=== PATIENT | male | born 1995 | race Caucasian/White ===

== ENCOUNTER 2020-01-15 09:20 | Emergency (ER) | payer OTHER, SELFPAY ==
[2020-01-15 09:25] VITALS: BP 130/91; PULSE 65; RESP 19; TEMP 36.5; O2SAT 100; BMI 17.9
[2020-01-15] MEDS: PROPARACAINE 0.5% OPHTH SOL 1 DROPS EYE-LEFT (09:42)
--- NOTE | 2020-01-15 10:34 | ED_ITS ---
HPI - Eye Problem General Chief complaint: Eye Problems Stated complaint: left eye is bothering patient Time Seen by Provider: 01/15/20 09:57 Source: patient Mode of arrival: Ambulatory History of Present Illness HPI Narrative: CC: Left eye pain HPI: The patient is a 25-year-old male who comes into the emergency department with pain in his left eye. He states that he wears contacts. His eye is very photophobic and has been tearing. The conjunctiva of both eyes are erythematous. 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 He has never before injured his eye or had an abrasion to his eye. The pain is somewhat sharp pain when he blinks his eyes. It hurts when his eyes are open hurts when his eyes are closed. He has had no recent nasal congestion sore throat cough or cold. He has had no fever chills or sweats. Related Data Allergies Allergy/AdvReac Type Severity Reaction Status Date / Time sulfamethoxazole Allergy Rash Verified 01/15/20 09:30 [From Bactrim] trimethoprim [From Bactrim] Allergy Rash Verified 01/15/20 09:30 Review of Systems Review of Systems Narrative: His review of systems are negative except for those mentioned in the history of present illness. Patient History Social History Smoking Status: Never smoker Smoking Status: Never smoker alcohol intake frequency: holidays/special occasions only Substance Use Type: does not use Exam Narrative Exam Narrative: PHYSICAL EXAM: CONSTITUTIONAL: Awake, Alert, Oriented, in moderate distress holding his left eye closed. He is resistant to opening his eye. He states that the pain and discomfort has returned after the anesthesia wore off. HEAD: AT/NC EENT: PERRL, FROM of eyes, the patient has increased tearing of his left eye. The conjunctiva both bulbar and palpebra both eyes are injected. He has full range of motion of his eyes. The anterior chamber is clear in the left eye. Fluorescein staining of the left eye did not reveal any corneal abrasion. However there was a persistent lower scleral abrasion. At the 9:00 a.m. and 3:00 a.m. positions of the sclera there was a growing white circular questionable thinness of the sclera noted. The patient's optic disc with sharp and visualized on left eye. Visual acuity is as noted. NECK: Supple, no obvious JVD, Trachea is midline without stridor, LUNGS: Clear with symmetrical breath sounds without respiratory distress HEART: Normal heart tones, regular rhythm and rate without murmur. NEURO: Awake, alert, oriented, conversive, cranial nerves II-XII are symmetrical and normal, moves all 4 extremities and is ambulatory Initial Vital Signs Initial Vital Signs: Vital Signs Temperature 97.7 F 01/15/20 09:25 Pulse Rate 65 01/15/20 09:25 Respiratory Rate 19 01/15/20 09:25 Blood Pressure 130/91 H 01/15/20 09:25 Pulse Oximetry 100 01/15/20 09:25 Course Orders Ordered: Discontinued Medications Fluorescein Sodium (Ful-Rosa) 1 mg EYE-LEFT NOW ONE Stop: 01/15/20 10:05 Last Admin: 01/15/20 10:45 Dose: 1 mg Documented by: VINEET Ketorolac Tromethamine (Acular 0.5% Ophth) 2 drops EYE-LEFT NOW ONE Stop: 01/15/20 10:18 Last Admin: 01/15/20 11:01 Dose: 2 drops Documented by: VINEET Ofloxacin (Ocuflox 0.3% Ophth) 2 drops EYE-LEFT NOW ONE Stop: 01/15/20 10:18 Last Admin: 01/15/20 11:00 Dose: 2 drops Documented by: VINEET Ofloxacin (Ocuflox 0.3% Ophth) 1 drops EYE-BOTH NOW ONE Stop: 01/15/20 10:18 Last Admin: 01/15/20 11:01 Dose: Not Given Documented by: VINEET Proparacaine HCl (Parcaine 0.5% Ophth Gaby) 1 drops EYE-LEFT PRN PRN PRN Reason: Pain, Mild (1-3) Last Admin: 01/15/20 09:42 Dose: 1 drop Documented by: VINEET Vital Signs Vital signs: Vital Signs - 8 hr 01/15/20 11:35 Pulse Rate 62 Respiratory Rate 18 Blood Pressure 127/80 Pulse Oximetry 100 Discharge Plan Departure Patient Disposition: Home Clinical Impression: Abrasion of sclera of left eye Qualifiers: Encounter type: initial encounter Qualified Code(s): S05.8X2A - Other injuries of left eye and orbit, initial encounter Acute conjunctivitis, bilateral Qualifiers: Acute conjunctivitis type: unspecified Qualified Code(s): H10.33 - Unspecified acute conjunctivitis, bilateral Discharge Date/Time: 01/15/20 11:35 Instructions: DI for Conjunctivitis Activity Restrictions/Additional Instructions: 1. Keep eyes closed and rest the eyes. 2. If not better in 48 hours follow-up with your livestock breeder to be re- examined. 3. The fluorescein eye stain did not reveal any corneal abrasion. However you h ave an abrasion to the lower sclera. 4. Apply 1 drop to 2 drops of ketorolac ophthalmic drops every 6 hours for pain control for the next 48 hours. 5. Apply 1 drop of ofloxacin ophthalmic solution to each eye every 4 hours while awake. Until the redness in your eyes and pain resolves. 6. Apply warm compresses to your eye for relief of pain and discomfor every 2 hours for 20-30 minutes as tolerated.
[2020-01-15] MEDS: FLUORESCEIN 1 MG STRIP EYE-LEFT (10:45)
[2020-01-15] MEDS: OFLOXACIN 0.3% OPHTH 5 ML 2 DROPS EYE-LEFT (11:00)
[2020-01-15] MEDS: KETOROLAC 0.5% OPHTH DROPS 5 ML 2 DROPS EYE-LEFT (11:01)
[2020-01-15 11:35] VITALS: BP 127/80; PULSE 62; RESP 18; O2SAT 100
== END 2020-01-15 11:35 | disposition home or self-care (01) ==
LOC: ED 10:42
PROVIDERS: Emergency Provider Emergency Medicine
DX: S05.8X2A Other injuries of left eye and orbit, initial encounter (principal); H10.33 Unspecified acute conjunctivitis, bilateral
CPT/HCPCS: 99282